=== PATIENT | male | born 1955 | race Caucasian/White ===

== ENCOUNTER 2017-03-07 09:55 | Day surgery (SDC) | payer BC ==
[~2017-03-07] VITALS: Ht 177.8 cm; Wt 81.9 kg
[~2017-03-07 09:55] MED LIST: BACITRACIN OINT 500U/GM, 15 GM ONE; EPINEPHRINE TOPICAL SOLN 1 MG/ML, 30ML ONE; FLUORESCEIN OPHTHALMIC 1 MG STRIP ONE; LIDOCAINE/PF 1%-EPI 1:200K, 30 ML ONE; OXYMETAZOLINE NASAL SPRAY 0.05%, 15ML ONE
[2017-03-07] MEDS ORDERED: LACTATED RINGERS 1,000 ML IV SCH (10:38)
[2017-03-07 10:47] VITALS: BP 121/82
[2017-03-07] MEDS ORDERED: MIDAZOLAM 1 MG/ML, 2ML ONE (11:40)
[2017-03-07] MEDS ORDERED: FENTANYL PF 100 MCG/2ML ONE ×2 (11:40)
[2017-03-07] MEDS ORDERED: PROPOFOL 10 MG/ML, 20ML ONE (11:41)
[2017-03-07] MEDS ORDERED: ONDANSETRON 2MG/ML, 2ML ONE ×2 (11:41)
[2017-03-07] MEDS ORDERED: DEXAMETHASONE 4 MG/ML, 1ML ONE ×2 (11:41)
[2017-03-07] MEDS ORDERED: CEFAZOLIN 1,000 MG ONE ×2 (11:41)
[2017-03-07] MEDS ORDERED: SUCCINYLCHOLINE 20 MG/ML, 10ML ONE (11:42)
[2017-03-07] MEDS ORDERED: ROCURONIUM 10MG/ML,5ML ONE (11:42)
[2017-03-07] MEDS ORDERED: EPHEDRINE 50 MG/ML, 1ML ONE (12:06)
[2017-03-07] MEDS ORDERED: LABETALOL 5MG/ML, 20ML IV PRN (12:30)
[2017-03-07] MEDS ORDERED: ALBUTEROL SULFATE 2.5 MG/3 ML NPPB PRN (12:30)
[2017-03-07] MEDS ORDERED: HYDROmorphone 1 MG/ML, 1ML IV PRN (12:30)
[2017-03-07] MEDS ORDERED: MEPERIDINE/PF 25MG/0.5ML IVPush PRN (12:30)
[2017-03-07] MEDS ORDERED: MIDAZOLAM 1 MG/ML, 2ML IV PRN (12:30)
[2017-03-07] MEDS ORDERED: FENTANYL PF 100 MCG/2ML IV PRN (12:30)
[2017-03-07] MEDS ORDERED: OXYcodone 5 MG/5 ML ORAL.SOL UDC PO PRN (12:30)
[2017-03-07] MEDS ORDERED: PROMETHAZINE 25 MG/ML, 1ML IV PRN (12:30)
[2017-03-07] MEDS ORDERED: ONDANSETRON 2MG/ML, 2ML IVPush PRN ×2 (12:30→15:30)
[2017-03-07] MEDS ORDERED: hydrALAzine 20 MG/ML, 1ML IV PRN (12:30)
[2017-03-07] MEDS ORDERED: ACETAMINOPHEN 325 MG TABLET PO PRN (12:30)
[2017-03-07] MEDS ORDERED: HYDROcodone/APAP 5/325 TABLET ONE (15:22)
[2017-03-07] MEDS ORDERED: HYDROcodone/APAP 5/325 TABLET PO PRN (15:30)
[2017-03-07] MEDS ORDERED: morphine SULFATE 10 MG/ML, 1ML IVPush PRN (15:30)
[2017-03-07] MEDS ORDERED: OXYMETAZOLINE NASAL SPRAY 0.05%, 15ML NAS ONE (16:00)
== END 2017-03-07 16:50 | disposition home or self-care (01) ==
LOC: OUT 09:55
PROVIDERS: ATTEND Otolaryngology
DX: J32.9 Chronic sinusitis, unspecified (principal); J34.2 Deviated nasal septum; Z87.39 Personal history of other diseases of the musculoskeletal system and connective tissue; Z98.890 Other specified postprocedural states
CPT/HCPCS: 30140; 30520; 31255; 31256; 31287; 61782; 87070; 87075; 87077; 87186; 87205; 88304; J0330; J0690; J1100; J2250; J2405; J2704; J3010; J3490; J7120